=== PATIENT | male | born 1975 | race African-American/Black ===

== ENCOUNTER 2024-06-02 13:29 | Outpatient (CLI) | payer OTHER, SELFPAY ==
--- NOTE | ~2024-06-02 | MR_ITS ---
EXAMINATION: MR lumbar spine wo con DATE: 06/02/2024 15:13 INDICATION: Low back pain with radiculopathy TECHNIQUE: Magnetic resonance imaging (MRI) of the lumbar spine was performed without intravenous con trast. Sequences included sagittal T2-weighted FSE, sagittal T2-weighted FS FSE, sagittal T1-weighted FSE, and axial T2-weighted FSE. COMPARISON: None FINDINGS: For degree lumbar levocurvature. Sagittal alignment is normal. Vertebral body heights are normal. Sev ere disc height loss with degenerative fibrovascular endplate changes at L5-S1. Disc desiccation and mild to moderate disc height loss at L4-L5 with additional minimal fibrovascular degenerative endplat e changes. There are annular fissures at both of these levels. Otherwise normal marrow signal. The co nus medullaris terminates at L1-L2. There is normal signal in the caudal spinal cord. Paravertebral s oft tissues are unremarkable. The following disc levels are specifically discussed: T12-L1: The disc does not extend beyond the endplate margin. There is mild right and moderate left fa cet joint osteoarthritis. There is no neural foraminal stenosis. There is no central canal stenosis. L1-L2: The disc does not extend beyond the endplate margin. There is moderate to severe bilateral fac et joint osteoarthritis. There is no neural foraminal stenosis. There is no central canal stenosis. L2-L3: Disc is minimally bulging. There is moderate bilateral facet joint osteoarthritis. There is mi ld bilateral neural foraminal stenosis. There is mild central canal stenosis. L3-L4: Disc is mildly bulging. There is moderate to severe right and severe left facet joint osteoart hritis. There is mild bilateral neural foraminal stenosis. There is mild central canal stenosis. L4-L5: Moderate disc bulge. There is mild to moderate bilateral facet joint osteoarthritis. There is moderate bilateral neural foraminal stenosis. There is moderate central canal stenosis with narrowing the lateral recesses, left greater than right. L5-S1: Moderate disc bulge. There is moderate bilateral facet joint osteoarthritis. There is moderate to severe right and severe left neural foraminal stenosis. There is mild central canal stenosis. IMPRESSION: 1. Progressive gradient of minimal upper to severe lower lumbar spondylosis. Reviewed, dictated and finalized at location A. [employer]
== END 2024-06-02 13:30 | disposition home or self-care (01) ==
PROVIDERS: Visit Provider Physician Assistant
DX: M43.06 Spondylolysis, lumbar region (principal)
CPT/HCPCS: 72148